=== PATIENT | male | born 1955 | race Caucasian/White ===

== ENCOUNTER 2017-04-01 01:07 | Emergency (ER) | payer BC ==
[2017-04-01] MEDS ORDERED: MORPHINE SULFATE 5 MG/ML PFS IVP ONE ×2 (01:16→01:46)
[2017-04-01] MEDS ORDERED: 0.9 % SODIUM CHLORIDE 1,000 ML BAG IV ONE (01:16)
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
[2017-04-01 01:42] LABS: BASO % 0.3 % (0-6); EOS % 0.4 % (0-6); HEMATOCRIT 42.1 % (42.0-52.0); HEMOGLOBIN 14.6 gm/dl (14.0-18.0); LYMPH % 6.8 % (16-45); MEAN CELL VOLUME 86.3 fl (81-97); MEAN CORPUSCULAR HEMOGLOBIN 29.9 pg (27-33); MEAN CORPUSCULAR HGB CONC 34.7 g/dl (32-36); MEAN PLATELET VOLUME 8.1 fl (7.4-10.4); MONO % 6.2 % (0-9); PLATELET COUNT 329 K/uL (130-400); RED BLOOD COUNT 4.88 M/uL (4.40-5.70); RED CELL DISTRIBUTION WIDTH 14.3 % (11.5-14.5); WHITE BLOOD COUNT W/O DIFF 14.3 K/uL (4.2-12.2)
[2017-04-01 01:52] LABS: INR 1.03; PARTIAL THROMBOPLASTIN TIME 30.6 SECONDS (24.5-39.1); PROTHROMBIN TIME (PATIENT) 11.1 SECONDS (9.5-12.1)
[2017-04-01 01:53] LABS: ALB/GLOB RATIO 1.3 (1.1-1.8); ALBUMIN 4.1 gm/dL (3.5-5.0); ALKALINE PHOSPHATASE 79 U/L (38-126); ALT/SGPT 45 U/L (21-72); ANION GAP 13.6 (7-16); AST/SGOT 30 U/L (17-59); BILIRUBIN,TOTAL 0.81 mg/dL (0.2-1.3); BLOOD UREA NITROGEN 14 mg/dL (9-20); CARBON DIOXIDE 21.4 mmol/L (22-30); CREATININE 0.8 mg/dL (0.66-1.25); EST GLOMERULAR FILTRATION RATE > 60 ml/min; GLUCOSE,RANDOM 99 mg/dL (70-110); TOTAL PROTEIN 7.3 gm/dL (6.3-8.2)
[2017-04-01 01:55] LABS: URINE APPEARANCE CLEAR; URINE BILIRUBIN NEGATIVE (NEGATIVE); URINE BLOOD NEGATIVE (NEGATIVE); URINE COLOR YELLOW; URINE GLUCOSE (UA) NEGATIVE (NEGATIVE); URINE KETONE NEGATIVE (NEGATIVE); URINE LEUKOCYTE ESTERASE NEGATIVE (NEGATIVE); URINE NITRITE NEGATIVE (NEGATIVE); URINE PROTEIN NEGATIVE (NEGATIVE); URINE UROBILINOGEN 0.2 E.U./dL (0.20 - 1.00)
[2017-04-01] MEDS ORDERED: ONDANSETRON HCL IV 4 MG/2 ML VIAL IVP ONE (01:59)
[2017-04-01] MEDS ORDERED: LIDOCAINE 5% PATCH TOP ONE (03:45)
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
== END 2017-04-01 03:59 | disposition home or self-care (01) ==
LOC: ER 01:07
DX: S20.211A Contusion of right front wall of thorax, initial encounter (principal); S30.0XXA Contusion of lower back and pelvis, initial encounter; S20.412A Abrasion of left back wall of thorax, initial encounter; S40.812A Abrasion of left upper arm, initial encounter; S80.212A Abrasion, left knee, initial encounter; Y04.2XXA Assault by strike against or bumped into by another person, initial encounter; Y92.009 Unspecified place in unspecified non-institutional (private) residence as the place of occurrence of the external cause
CPT/HCPCS: 99284 ×2; 96374; 96375; 85730; 85610; 80053; 81003; 85027; 72125; 71260; 70450; 74177; 94010; Q9967; J2405; J2270; J7030